=== PATIENT | female | born 2000 | race African-American/Black ===

== ENCOUNTER 2023-12-17 15:31 | Emergency (ER) | payer OTHER, SELFPAY ==
--- NOTE | ~2023-12-17 | CT_ITS ---
EXAMINATION: CT abdomen pelvis w con DATE: 12/17/2023 20:09 INDICATION: Upper abdominal pain. Nausea and vomiting. TECHNIQUE: Computed tomography (CT) of the abdomen and pelvis was performed with 100 mL Omnipaque 350 intravenous contrast. Automated exposure control and iterative reconstruction technique were employe d. The dose-length product was 598.66 mGy-cm. COMPARISON: None. FINDINGS: The visualized portions of the lung bases are clear without pneumonia or pleural effusion. The heart size is normal. No pericardial effusion. The liver, gallbladder, spleen, pancreas, adrenal glands, and right kidney are normal. There is a 6 mm cyst in left kidney. There are no dilated loops of bowel. The appendix is not visualized. There are no pathologically enlarged lymph nodes. There is no free intraperitoneal fluid. There is mild lumbar spondylosis. IMPRESSION: 1. No etiology for the patient's symptoms. Reviewed, dictated and finalized at location E.
[2023-12-17 15:36] VITALS: BP 157/86; PULSE 103; RESP 18; TEMP 37; O2SAT 98
--- NOTE | 2023-12-17 17:16 | ED.NAVMDI ---
HPI - Nausea/Vomiting/Diarrhea General Chief complaint: Nausea/Vomiting/Diarrhea <Leah Hensley PA-C - Last Filed: 12/17/23 17:22> Stated complaint: n/v, abdominal pain <Leah Hensley PA-C - Last Filed: 12/17/23 17:22> Time Seen by Provider: 12/17/23 17:39 <Leah Hensley PA-C - Last Filed: 12/17/23 17:22> Focused HPI: 23-year-old female presents to emergency department for epigastric abdominal pain for approximately 2 months. States the pain is a burning sensation and radiates up into her chest. Patient states she was diagnosed with H pylori by her PCP 1 month ago. She was prescribed tetracycline, Flagyl, omeprazole and Pepto-Bismol. States she took these medications for 3 days and started feeling diseases she discontinued them. States her PCP told her that she needs to start taking the medications again, so she has been taking them for approximately 2 weeks. She presents today because she states 5 days ago she began developing vomiting every time she would try to eat and has been having difficulty keeping down food and fluids. She denies coffee-ground emesis or hematemesis but states her stools are dark and tarry. She denies hematochezia, fever, chest pain or shortness of breath , dysuria or hematuria. States she has not been evaluated by GI or had an EGD. she is not anticoagulated. GENERAL: Well-appearing, well-nourished, and in no acute distress. HEAD: Normocephalic, atraumatic. CHEST: Clear to auscultation. ?No respiratory distress. ABD: soft, nontender, normoactive bowel sounds. No CVA tenderness. HEART: Regular rate and rhythm.? NEURO: ?Alert and oriented x3. Patient screened in triage and initial orders placed.? ?Additional care and disposition to be based upon?diagnostic testing and treatment. <Leah Hensley PA-C - Last Filed: 12/17/23 17:22> Focused HPI: 23-year-old female presents to emergency department for epigastric abdominal pain for approximately 2 months. States the pain is a burning sensation and radiates up into her chest. Patient states she was diagnosed with H pylori by her PCP 1 month ago. She was prescribed tetracycline, Flagyl, omeprazole and Pepto-Bismol. States she took these medications for 3 days and started feeling diseases she discontinued them. States her PCP told her that she needs to start taking the medications again, so she has been taking them for approximately 2 weeks. She presents today because she states 5 days ago she began developing vomiting every time she would try to eat and has been having difficulty keeping down food and fluids. She denies coffee-ground emesis or hematemesis but states her stools are dark and tarry. She denies hematochezia, fever, chest pain or shortness of breath , dysuria or hematuria. States she has not been evaluated by GI or had an EGD. she is not anticoagulated. GENERAL: Well-appearing, well-nourished, and in no acute distress. HEAD: Normocephalic, atraumatic. CHEST: Clear to auscultation. ?No respiratory distress. ABD: soft, nontender, normoactive bowel sounds. No CVA tenderness. HEART: Regular rate and rhythm.? NEURO: ?Alert and oriented x3. Patient screened in triage and initial orders placed.? ?Additional care and disposition to be based upon?diagnostic testing and treatment. <CUCA Hastings Last Filed: 12/17/23 21:44> Source: patient <CUCA Hastings Last Filed: 12/17/23 21:44> Mode of arrival: ambulatory <CUCA Hastings Last Filed: 12/17/23 21:44> Limitations: no limitations <CUCA Hastings Last Filed: 12/17/23 21:44> History of Present Illness HPI Narrative: Agree with above HPI. Able to keep down some fluids. Denies diarrhea, constipation, rectal bleeding, melena. <CUCA Hastings Last Filed: 12/17/23 21:44> Related Data Allergies/Adverse reactions: Allergies Allergy/AdvReac Type Severity Reaction Status
[2023-12-17 17:42] VITALS: BP 136/97; PULSE 88; RESP 17; O2SAT 100
[2023-12-17] MEDS: BELLADONNA ALK/PHENOB ELIX 10 ML, MAG HYDROX/ALUMINUM HYD/SIMETH 30 ML, LIDOCAINE HCL 2... PO (17:56)
[2023-12-17 17:57] LABS: Basophils Absolute Auto 0.1 K/mm3 (0.0-0.1); Basophils Percent Auto 1.1 % (0.2-1.2); Eosinophils Absolute Auto 0.2 K/mm3 (0-0.3); Eosinophils Percent Auto 2.6 % (0-4.4); Hematocrit 43.8 % (37.0-47.0); Hemoglobin 14.9 g/dL (12.0-15.0); Immature Granulocyte Absolute 0.02 K/mm3 (0.00-0.031); Immature Granulocyte Percent A 0.3 % (0-0.5); Lymphocytes Absolute Auto 2.12 K/mm3 (0.9-3.2); Lymphocytes Percent Auto 28.6 % (18.3-44.2); Mean Corpuscular Hemoglobin 27.9 pg (26-34); Mean Corpuscular Volume 81.9 fl (80-100); Mean Platelet Volume 9.3 fl (7.4-10.4); Monocytes Percent Auto 13.4 % (2.6-8.5); Platelet Count Result 360 k/mm3 (150-375); Red Blood Count 5.35 M/mm3 (4.2-5.4); White Blood Count 7.4 K/mm3 (4.5-10.0)
[2023-12-17 18:07] LABS: INR 0.9; Prothrombin Time 12.9 Seconds (11.1-14.7)
[2023-12-17 18:09] LABS: Partial Thromboplastin Time 27.6 Seconds (22.3-36.8)
[2023-12-17 18:19] LABS: Alanine Aminotransferase 33 U/L (6-35); Albumin Level 4.6 g/dL (3.5-5.1); Alkaline Phosphatase 54 U/L (38-126); Anion Gap 4 mmol/L (4-12); Aspartate Amino Transferase 35 U/L (14-36); Bilirubin,Total 0.4 mg/dL (0.2-1.3); Blood Urea Nitrogen 10 mg/dL (7-17); Calcium 9.5 mg/dL (8.4-10.2); Carbon Dioxide 31 mmol/L (22-30); Chloride 105 mmol/L (98-107); Estimated CRCL calculation 155 ml/min; Estimated Glomerular Filt Rate > 60; Glucose 94 mg/dL (65-110); Lipase 175 U/L (23-300); Potassium 3.6 mmol/L (3.4-5.0); Sodium 140 mmol/L (137-145)
--- NOTE | 2023-12-17 18:25 | ECG_ITS ---
SEE SCANNED COPY FOR CONFIRMED REPORT MTDD
[2023-12-17 19:05] LABS: Troponin I < 0.012 ng/mL (0.000-0.034)
[2023-12-17 19:40] VITALS: BP 139/71; PULSE 81; RESP 16; O2SAT 100
[2023-12-17 20:46] LABS: Appearance Urine Cloudy (Clear); Bacteria Urine None Seen /hpf; Bilirubin Urine Negative (Negative); Blood Urine Negative (Negative); Color Urine Yellow (Yellow); Glucose Urine UA Negative (Negative); Ketones Urine Negative (Negative); Leukocyte Esterase Ur 1+ LEU/UL (Negative); Need Manual Microscopic Reviewed; Nitrate Urine Negative (Negative); Non Pathogenic Casts 0-2; Protein Urine Negative (Negative); RBC Urine 0-2 /hpf (0-2); Specific Grav Ur 1.019 (1.001-1.035); Squamous Epithelial Cell Urine Occasional /hpf (Few); Urobilinogen Urine 0.2 mg/dL (<2.0); WBC Urine 0-5 /hpf (0-3)
[2023-12-17 20:50] LABS: Add Urine Microscopic? YES
[2023-12-17] MEDS: METOCLOPRAMIDE HCL INJ 10 MG/2 ML VIAL IV PUSH (21:55)
[2023-12-17] MEDS: diphenhydrAMINE HCl CAP 25 MG CAPSULE PO (21:55)
[2023-12-17 22:00] VITALS: BP 146/65; PULSE 78; RESP 16; TEMP 36.7; O2SAT 100
== END 2023-12-17 22:00 | disposition home or self-care (01) ==
PROVIDERS: Physician Assistant; Emergency Provider Physician Assistant
DX: R10.13 Epigastric pain (principal); R11.2 Nausea with vomiting, unspecified; R94.31 Abnormal electrocardiogram [ECG] [EKG]
CPT/HCPCS: 36415; 74177; 80053; 81001; 81025; 83690; 84484; 85025; 85610; 85730; 93005; 96374; 99284; A9270; J2765; Q9967

== ENCOUNTER 2024-01-04 07:00 | Outpatient (NON) | payer OTHER, SELFPAY | END 2024-01-05 08:01 | disposition home or self-care (01) | PROVIDERS: Visit Provider Internal Medicine Gastroenterology | DX: A04.8 Other specified bacterial intestinal infections (principal) | CPT/HCPCS: 88305 ==

== ENCOUNTER 2024-01-04 07:12 | Day surgery (SDC) | payer OTHER, SELFPAY ==
[2023-12-28 09:01] VITALS: BMI 33.3
--- NOTE | 2024-01-04 07:28 | P.HP_ITS ---
History of Present Illness History of Present Illness Consent: Risks, benefits, and alternatives have been discussed and questions answered. Patient agrees to proceed with procedure. Chief complaint: Epigastric pain,nasuea w/vomiting,other specified Narrative: Jeff Boyle is a 23 year old female who presented to [facility] on 12/17/2023 for c/o epigastric abdominal pain for approximately 2 months.?Pain is a burning sensation and radiates up into her chest. Patient states she was diagnosed with H pylori by her PCP 1 month ago and was prescribed tetracycline, Flagyl, omeprazole and?Pepto-Bismol.? States she started having nausea and vomiting and worse after starting treatment and temporiarly discontinue. She did complete the 2 week course last Wednesday. She presents to ER because off vomiting after eating and difficulty keeping down food and fluids. she is currently taking omeprazole and metoclopramide. Review of Systems Review of Systems: All systems reviewed & are unremarkable except as noted in HPI and below PMFSH Past Medical History Medical History H. pylori infection Social History Social History Smoking status: Never smoker Substance use type: does not use Meds Home Medications and Allergies Home Medications Medication Instructions Recorded Confirmed Type omeprazole 40 mg capsule,delayed 40 mg PO DAILY 12/21/23 01/04/24 History release venlafaxine 75 mg tablet 75 mg PO DAILY 12/21/23 01/04/24 History Ventolin 1 inh BYMOUTH DIRECTED 12/28/23 01/04/24 History indapamide 1.25 mg tablet 1.25 mg PO DIRECTED 12/28/23 01/04/24 History metoclopramide HCl 5 mg tablet 5 mg PO DIRECTED 12/28/23 01/04/24 History Allergies Allergy/AdvReac Type Severity Reaction Status Date / Time No Known Allergies Allergy Verified 01/04/24 08:06 Exam Const: General: alert Orientation/consciousness: patient oriented x3 Resp: Auscultation: clear to auscultation bilaterally Cardio: Rhythm: regular rhythm GI: GI Palp: Yes Soft to palpation and No Tenderness to palpation present (GI) Neuro: General: patient oriented x3 Assessment and Plan Assessment and plan (1) Nausea and vomiting: Qualifiers: Vomiting type: unspecified Qualified Code(s): R11.2 - Nausea with vomiting, unspecified Code(s): R11.2 - Nausea with vomiting, unspecified Status: Inactive Plan EGD with possible biopsy or dilatation or cautery.
[2024-01-04 08:07] VITALS: BP 124/74; PULSE 87; RESP 16; TEMP 37.6; O2SAT 99
[2024-01-04] MEDS: LACTATED RINGERS 1,000 ML 150 ML IV CONT (08:13)
--- NOTE | 2024-01-04 08:34 | WPDANESEPPF ---
Anes - Initial Pre Proc Eval Procedure: Operation Date: 01/04/24 09:30 Proposed Procedures p Esophagogastroduodenoscopy - David Sullivan MD Date/Time: 01/04/24 08:34 Surgeon: David Sullivan MD Pre Op Diagnosis: Epigastric pain,nasuea w/vomiting,other specified Patient Data Age: 23 Gender: F Height: 1.75 m Weight: 99.5 kg Last Vital Signs Temp 37.6 C 01/04/24 08:07 Pulse 87 01/04/24 08:07 Resp 16 01/04/24 08:07 BP 124/74 01/04/24 08:07 Pulse Ox 99 01/04/24 08:07 O2 Del Method Room Air 01/04/24 08:07 Allergies Allergy/AdvReac Type Severity Reaction Status Date / Time No Known Allergies Allergy Verified 01/04/24 08:06 Home Medications Medication Instructions Recorded Confirmed Type omeprazole 40 mg capsule,delayed 40 mg PO DAILY 12/21/23 01/04/24 History release venlafaxine 75 mg tablet 75 mg PO DAILY 12/21/23 01/04/24 History Ventolin 1 inh BYMOUTH DIRECTED 12/28/23 01/04/24 History indapamide 1.25 mg tablet 1.25 mg PO DIRECTED 12/28/23 01/04/24 History metoclopramide HCl 5 mg tablet 5 mg PO DIRECTED 12/28/23 01/04/24 History Patient hx anesthesia problems: none Family hx anesthesia problems: none Results Review: All pre-operative results and documents have been reviewed as part of the pre-operative evaluation. [facility] Past Medical History Medical History H. pylori infection Social History Social History Smoking status: Never smoker Substance use type: does not use Anes - Eval Final PreProcedure Day of Procedure 01/04/24 08:34 Patient weight: obese Heart: regular rate and rhythm Lungs: clear to auscultation Airway: Mallampati scale class II Neurological: alert and oriented Last oral intake: >/= 8 hours ASA classification: III Emergent: no Anesthetic plan: proceed Anesthesia type and monitoring: general GIVS and standard monitoring Results Review: All pre-operative results and documents have been reviewed as part of the pre-operative evaluation. Informed Consent: The patient's anesthetic plan and its attendant risks and benefits were discussed with the patient/family/POA. Questions were solicited and answers provided to the satisfaction of the patient/family/POA.
[2024-01-04 09:42] VITALS: BP 123/75; PULSE 107; RESP 14; O2SAT 99
[2024-01-04 09:52] VITALS: BP 115/89; PULSE 92; RESP 15; O2SAT 100
--- NOTE | 2024-01-04 09:53 | WPDANESPN ---
Anes - Prog Note Post-Op Date/Time: 01/04/24 09:53 Cardiovascular status: normal Respiratory status: normal Airway patency: baseline Mental status: baseline Post-Op hydration status: normal Vital Signs: Last Vital Signs Temp 37.6 C 01/04/24 08:07 Pulse 107 H 01/04/24 09:42 Resp 14 01/04/24 09:42 BP 123/75 01/04/24 09:42 Pulse Ox 99 01/04/24 09:42 O2 Del Method Room Air 01/04/24 09:42 Pain Score (VAS): 0 I/O: Intake & Output 01/03/24 01/04/24 01/04/24 23:59 07:59 15:59 Intake Total 200 Balance 200 Patient Feedback: Patient satisfied with anesthetic care.
[2024-01-04 10:02] VITALS: BP 122/83; PULSE 90; RESP 16; O2SAT 100
--- NOTE | 2024-01-04 11:07 | SUR.PHASEII ---
Pt in recovery following procedure, waiting for pt's ride to arrive. Pt doing well, VSS and in no apparent distress. Resting comfortably in post-op room. Pt states no needs at this time, will be discharged when ride arrives.
== END 2024-01-04 11:09 | disposition home or self-care (01) ==
PROVIDERS: Visit Provider Internal Medicine Gastroenterology
PROC: 0DJ08ZZ Inspection of Upper Intestinal Tract, Via Natural or Artificial Opening Endoscopic (ICD-10-PCS; CPT 43235; principal; 2024-01-04 09:30)
DX: R11.2 Nausea with vomiting, unspecified (principal); R10.13 Epigastric pain; K21.9 Gastro-esophageal reflux disease without esophagitis
CPT/HCPCS: 43239

== ENCOUNTER 2024-10-31 15:06 | Outpatient (CLI) | payer OTHER, SELFPAY ==
--- NOTE | ~2024-10-31 | XR_ITS ---
CHEST RADIOGRAPH, PA AND LATERAL CLINICAL HISTORY: Acute cough . COMPARISON: None available TECHNIQUE: PA and lateral views of the chest. FINDINGS The cardiomediastinal silhouette is unremarkable. The lungs are clear. Visualized osseous structures and soft tissues are unremarkable. IMPRESSION: No focal infiltrate or effusion. Reviewed, dictated and finalized at location A.
== END 2024-10-31 15:07 | disposition home or self-care (01) ==
PROVIDERS: PCP Nurse Practitioner; Visit Provider Nurse Practitioner
DX: R05.1 Acute cough (principal)
CPT/HCPCS: 71046